=== PATIENT | female | born 1975 ===

== ENCOUNTER 2024-05-18 05:06 | Day surgery (SDC) | payer OTHER ==
[2024-05-14 11:01] VITALS: BP 150/80
[~2024-05-18] VITALS: Ht 170.2 cm; Wt 124.7 kg
[~2024-05-18 05:06] MED LIST: LOSARTAN-HCTZ1 EACH PO
[2024-05-18] MEDS ORDERED: POVIDONE-IODINE 118 ML BOTT TOP ONE (07:51)
[2024-05-18] MEDS ORDERED: ONDANSETRON HCL 2 MG/ML VIAL IV ONE (09:00)
[2024-05-18] MEDS ORDERED: MORPHINE SULFATE 4 MG/ML VIAL IV ONE (10:20)
== END 2024-05-18 14:30 | disposition home or self-care (01) ==
LOC: CIR.AMB 05:06
PROVIDERS: ATTEND Obstetrics & Gynecology
DX: N72 Inflammatory disease of cervix uteri (principal); N95.0 Postmenopausal bleeding; I10 Essential (primary) hypertension